=== PATIENT | male | born 1980 | race Caucasian/White ===

== ENCOUNTER 2018-11-24 16:03 | Emergency (ER) | payer OTHER ==
[2018-11-24] MEDS ORDERED: HYDROmorphONE/DILAUDID 2 MG/ML INJ IVP ONE (16:20)
[2018-11-24] MEDS ORDERED: NS 1,000 ML IV ONE (16:20)
[2018-11-24] MEDS ORDERED: KETOROLAC 30 MG/1 ML SDV IVP ONE (16:20)
[2018-11-24] MEDS ORDERED: ONDANSETRON 4 MG/2 ML VIAL IVP ONE (16:20)
--- NOTE | 2018-11-24 16:20 | EDPHY ---
H & P Stated Complaint: l flank l abd pain with hx kidney stones Time Seen by Provider: 11/24/18 16:19 - Personal History Current Tetanus Diphtheria and Acellular Pertussis (TDAP): Yes - Medical/Surgical History Hx Asthma: No Hx Chronic Respiratory Disease: No Hx Diabetes: No Hx Cardiac Disease: No Hx Renal Disease: No Hx Cirrhosis: No Hx Alcoholism: No Hx HIV/AIDS: No Hx Splenectomy or Spleen Trauma: No Other PMH: kidney stones - Social History Smoking Status: Never smoked Constitutional: Initial Vital Signs Temperature (C) 37.3 C 11/24/18 16:09 Heart Rate 104 H 11/24/18 16:09 Respiratory Rate 18 11/24/18 16:09 Blood Pressure 156/109 H 11/24/18 16:09 O2 Sat (%) 97 11/24/18 16:09 O2 Delivery Mode Room Air Allergies/Adverse Reactions: Sulfa (Sulfonamide Antibiotics) Allergy (Verified 11/24/18 16:08) Home Medications: Medication Instructions Recorded Abilify 11/24/18 Hydrocodone/APAP 5/325 [[place] 1 - 2 each PO Q4-6PRN PRN #20 tab 11/24/18 5/325] Ibuprofen [Motrin] 800 mg PO Q8 #20 tab 11/24/18 Sertraline HCl 11/24/18 Tamsulosin HCl [Flomax 0.4 MG (*)] 0.4 mg PO DAILY #10 cap 11/24/18 Medical Decision Making - Diagnostics Imaging Results: Imaging Impressions Abdomen/Pelvis Ultrasound 11/24/18 16:24 Impression: 5 mm calcification within the region of the distal left ureter suspicious for a distal left ureteral calculus. No associated hydronephrosis. Results called to Dr. Ramirez at 5:20 PM. Imaging: Discussed imaging studies w/ nurse leader Radiologist, I viewed and interpreted images myself ED Course/Re-evaluation: CHIEF COMPLAINT: Left flank pain HISTORY OF PRESENT ILLNESS: The patient is a 38 y/o male with a history of kidney stones complaining of waxing and waning left flank pain, onset 2 hours ago. The patient has passed a total of 12 kidney stones and was admitted for 2 of those. For these kidney stones, the patient has had 1 CT scan and 1 ultrasound. The pain today feels the same as prior kidney stones. Currently the pain is present for 30 minutes and then alleviates for 10 minutes. As his pain has not improved, he decided to present to the emergency department. No fever, headache, body aches, lightheadedness, chest pain, heart palpitations, shortness of breath, cough, abdominal pain, urinary or bowel complaints, numbness, paresthesias. REVIEW OF SYSTEMS: A comprehensive 10 system review of systems is otherwise negative aside from elements mentioned in the history of present illness and medical decision making. PHYSICAL EXAM: HR, BP, O2 Sat, RR. Temp noted General Appearance: Alert, well hydrated, appropriate, and non-toxic appearing. Head: Atraumatic without scalp tenderness or obvious injury Eyes: Pupils equal, round, reactive to light and accommodation, EOMI, no trauma , no injection. Ears: Clear bilaterally, no perforation, normal landmarks Nose: Atraumatic, no rhinorrhea, clear. Throat: There is no erythema or exudates, no lesions, normal tonsils, mucus membranes moist. Neck: Supple, 2+ carotid upstroke, nontender, no lymphadenopathy. Respiratory: No retractions, no distress, no wheezes, and no accessory muscle use. Lungs are clear to auscultation bilaterally. Cardiovascular: Regular rate and rhythm, no murmurs, rubs, or gallops. Bilateral carotid, radial, dorsalis pedis, and posterior tibial pulses intact. Good capillary refill all extremities. Gastrointestinal: Abdomen is soft, nontender, non-distended, no masses, no rebound, no guarding, no peritoneal signs. Back: Left CVA tenderness. Musculoskeletal: Normal active ROM of all extremities, atraumatic. Neurological: Alert, appropriate, and interactive. The patient has normal DTRs and non-focal cranial nerves, motor, sensory, and cerebellar exam. Skin: No rashes, good turgor, no nodules on palpation. Past medical history: Kidney stones Past surgical history: Denies Family history: Denies Social history: Lives in [place], single, employed DIAGNOSTICS/PROCEDURES/CRITICAL CARE TIME: Left flank US: Left stone measuring at 4.5mm x 5.5 mm at the UVJ. Minimal hydronephrosis and a good ureter. DIFFERENTIAL DIAGNOSIS: The differential diagnosis for the patient's flank pain included but was not limited to musculoskeletal causes, kidney stone, pyelonephritis, shingles, diverticulitis, appendicitis, and aortic aneurysm. MEDICAL DECISION MAKING: The patient is a 38 y/o male with a history of 10 kidney stones presenting with waxing and waning left flank pain, onset 2 hours ago. For these kidney stones, the patient has had 1 CT scan and 1 ultrasound. On exam he has a left CVA tenderness. As the patient has had CT scans in the past, I will order an US which the patient is comfortable with. Labs and retroperitoneal US ordered; 1L IV NS, 30mg IV Toradol, 1mg IV Dilaudid, 4mg IV Zofran, and 0.4mg PO Flomax administered. 1720: I spoke with the Dr. Nunez, radiologist, who reports that the patient has a left stone measuring at 4.5mm x 5.5 mm at the UVJ. Minimal hydronephrosis and a good ureter. UA still pending. 1720: Reassessed patient and discussed imaging findings. Patient should be able to pass the stone on his own. I have prescribed the patient Flomax, Motrin, and [place] for the kidney stone. Patient cannot be discharged until UA has resulted. 1732: Patient's UA reveals blood but no signs of infection. He is safe to be discharged home. I have advised him to follow up with a urologist and strain his urine. Return precautions provided; patient is comfortable with this plan. - Data Points Laboratory Results: Laboratory Results 11/24/18 16:30 11/24/18 16:30 11/24/18 11/24/18 11/24/18 17:15 16:30 16:30 WBC 6.68 10^3/uL 10^3/uL (3.80-9.50) RBC 5.09 10^6/uL 10^6/uL (4.40-6.38) Hgb 16.2 g/dL g/dL (13.7-17.5) Hct 47.6 % % (40.0-51.0) MCV 93.5 fL fL (81.5-99.8) MCH 31.8 pg pg (27.9-34.1) MCHC 34.0 g/dL g/dL (32.4-36.7) RDW 12.1 % % (11.5-15.2) Plt Count 274 10^3/uL 10^3/uL (150-400) MPV 9.4 fL fL (8.7-11.7) Neut % (Auto) 49.3 % % (39.3-74.2) Lymph % (Auto) 41.3 % % (15.0-45.0) [place] % (Auto) 6.6 % % (4.5-13.0) Eos % (Auto) 1.5 % % (0.6-7.6) Baso % (Auto) 0.9 % % (0.3-1.7) Nucleat RBC Rel Count 0.0 % % (0.0-0.2) Absolute Neuts (auto) 3.29 10^3/uL 10^3/uL (1.70-6.50) Absolute Lymphs (auto) 2.76 10^3/uL 10^3/uL (1.00-3.00) Absolute Monos (auto) 0.44 10^3/uL 10^3/uL (0.30-0.80) Absolute Eos (auto) 0.10 10^3/uL 10^3/uL (0.03-0.40) Absolute Basos (auto) 0.06 10^3/uL 10^3/uL (0.02-0.10) Absolute Nucleated RBC 0.00 10^3/uL 10^3/uL (0-0.01) Immature Gran % 0.4 % % (0.0-1.1) Immature Gran # 0.03 10^3/uL 10^3/uL (0.00-0.10) Sodium 141 mEq/L mEq/L (135-145) Potassium 3.8 mEq/L mEq/L (3.5-5.2) Chloride 103 mEq/L mEq/L (97-110) Carbon Dioxide 23 mEq/l mEq/l (22-31) Anion Gap 15 mEq/L H mEq/L (6-14) BUN 14 mg/dL mg/dL (7-23) Creatinine 0.8 mg/dL mg/dL (0.7-1.3) Estimated GFR > 60 Glucose 94 mg/dL mg/dL (70-100) Calcium 9.1 mg/dL mg/dL (8.5-10.4) Urine Color YELLOW Urine Appearance HAZY Urine pH 6.0 (5.0-7.5) Ur Specific Ho[place] 1.015 (1.002-1.030) Urine Protein 1+ H (NEGATIVE) Urine Ketones NEGATIVE (NEGATIVE) Urine Blood 3+ H (NEGATIVE) Urine Nitrate NEGATIVE (NEGATIVE) Urine Bilirubin NEGATIVE (NEGATIVE) Urine Urobilinogen NEGATIVE EU EU (0.2-1.0) Ur Leukocyte Esterase NEGATIVE (NEGATIVE) Urine RBC Pending Urine WBC Pending Ur Epithelial Cells Pending Urine Glucose NEGATIVE (NEGATIVE) Medications Given: Discontinued Medications Hydromorphone HCl (Dilaudid) 1 mg IVP EDNOW ONE Stop: 11/24/18 16:21 Last Admin: 11/24/18 16:35 Dose: 1 mg Sodium Chloride (Ns) 1,000 mls @ 0 mls/hr IV EDNOW ONE; Wide Open PRN Reason: Protocol Stop: 11/24/18 16:21 Last Admin: 11/24/18 16:36 Dose: 1,000 mls Ketorolac Tromethamine (Toradol) 30 mg IVP EDNOW ONE Stop: 11/24/18 16:21 Last Admin: 11/24/18 16:35 Dose: 30 mg Ondansetron HCl (Zofran) 4 mg IVP EDNOW ONE Stop: 11/24/18 16:21 Last Admin: 11/24/18 16:35 Dose: 4 mg Tamsulosin HCl (Flomax) 0.4 mg PO EDNOW ONE Stop: 11/24/18 16:25 Last Admin: 11/24/18 16:35 Dose: 0.4 mg Departure - Departure Disposition: Home, Routine, Self-Care Clinical Impression: Kidney stone on left side Condition: Good Instructions: Kidney Stones (ED), How to Strain Your Urine (ED) Additional Instructions: 1. Take Flomax, Motrin, and [place] as prescribed. 2. Followup with your urologist within one week. 3. Return to the emergency apartment for fever, severe pain, inability to urinate or other concerns. 4. Strain urine to try and catch the kidney stone and bring this to the urology appointment. Referrals: Yadira Lobato MD [Primary Care Provider] - As per Instructions Marilyn Martinez MD [Medical Doctor] - As per Instructions Prescriptions: Hydrocodone/APAP 5/325 [[place] 5/325] 1 - 2 each PO Q4-6PRN PRN #20 tab PRN Reason: Pain, Moderate Ibuprofen [Motrin] 800 mg PO Q8 #20 tab Tamsulosin HCl [Flomax 0.4 MG (*)] 0.4 mg PO DAILY #10 cap Report Scribed for: Rufus Ramirez Report Scribed by: Margarita Horvath Date of Report: 11/24/18 Time of Report: 16:35
[2018-11-24] MEDS ORDERED: TAMSULOSIN HCL 0.4 MG CAP PO ONE (16:24)
[2018-11-24 16:36] LABS: PLATELET COUNT 274 10^3/uL (150-400)
[2018-11-24 17:46] VITALS: BP 148/93
[2018-11-24] MEDS ORDERED: HYDROCOD/APAP 5/325 PREPACK#6 BTL TAKEHOME ONE (17:56)
== END 2018-11-24 17:45 | disposition home or self-care (01) ==
DX: N20.1 Calculus of ureter (principal)
CPT/HCPCS: 96374; J1170; J1885; J2405

== ENCOUNTER 2018-11-26 13:24 | Day surgery (SDC) | payer OTHER ==
[2018-11-26] MEDS ORDERED: LR 1,000 ML IV ONE (14:48)
--- NOTE | 2018-11-26 20:42 | PDHPUP ---
History & Physical Update H&P update statement: This history and physical update is based on an assessment of the patient which was completed after admission or registration (within 24 hours), but prior to the surgery/procedure. H&P update: H&P reviewed & patient examined, no change in patient's condition since H&P completed (left distal stone, urine WBC 15-25, needs stent. )
[2018-11-26] MEDS ORDERED: LIDOCAINE 2% JELLY 20 ML (UROJECT) ONE (20:44)
[2018-11-26] MEDS ORDERED: OPIUM/BELLADONNA ALKALO SUPP PR ONE (20:45)
[2018-11-26] MEDS ORDERED: IOPAMIDOL (ISOVUE-M 300) 15 ML VIAL ONE (20:45)
[2018-11-26] MEDS ORDERED: MIDAZOLAM 2 MG/2 ML VIAL IVP ONE (20:50)
--- NOTE | 2018-11-26 20:50 | PDANEPAE ---
ANE History of Present Illness ureterolithiasis here for stent ANE Past Medical History - Cardiovascular History Hx Hypertension: No Hx Arrhythmias: No Hx Chest Pain: No Hx Coronary Artery / Peripheral Vascular Disease: No Hx CHF / Valvular Disease: No Hx Palpitations: No - Pulmonary History Hx COPD: No Hx Asthma/Reactive Airway Disease: No Hx Recent Upper Respiratory Infection: No Hx Oxygen in Use at Home: No Hx Sleep Apnea: No Sleep Apnea Screening Result - Last Documented: Negative - Neurologic History Hx Cerebrovascular Accident: No Hx Seizures: No Hx Dementia: No - Endocrine History Hx Diabetes: No - Renal History Hx Renal Disorders: Yes Renal History Comment: KIDNEY STONES - Liver History Hx Hepatic Disorders: No - Neurological & Psychiatric Hx Hx Neurological and Psychiatric Disorders: Yes Neurological / Psychiatric History Comment: DEPRESSION/ANXIETY - Cancer History Hx Cancer: No - Congenital Disorder History Hx Congenital Disorders: No - GI History Hx Gastrointestinal Disorders: No - Other Health History Other Health History: NONE - Chronic Pain History Chronic Pain: No - Surgical History Prior Surgeries: KIDNEY STONE REMOVAL 2008 ANE Review of Systems Review of Systems: - Exercise capacity METS (RN): 4 METS ANE Patient History - Allergies Allergies/Adverse Reactions: Sulfa (Sulfonamide Antibiotics) Allergy (Verified 11/24/18 16:08) - Home Medications Home Medications: Abilify 5 mg PO DAILY 11/24/18 [Last Taken 11/26/18 06:30] Sertraline HCl 100 mg PO DAILY 11/24/18 [Last Taken 11/26/18 06:30] - NPO status NPO Status: no food or drink >8 hours NPO Since - Liquids (Date): 11/26/18 NPO Since - Liquids (Time): 13:00 NPO Since - Solids (Date): 11/26/18 NPO Since - Solids (Time): 07:00 - Anes Hx Anes Hx: no prior problems - Smoking Hx Smoking Status: Never smoked - Alcohol Use Alcohol Use: Heavy - Family Anes Hx Family Anes Hx: none Family Hx Anesthesia Complications: NONE ANE Labs/Vital Signs - Vital Signs Blood Pressure: 138/104 Heart Rate: 91 Respiratory Rate: 21 O2 Sat (%): 94 Height: 167.64 cm Weight: 70.307 kg ANE Physical Exam - Airway Neck exam: FROM Mallampati Score: Class 2 Mouth exam: normal dental/mouth exam - Pulmonary Pulmonary: no respiratory distress, clear to auscultation - Cardiovascular Cardiovascular: regular rate and rhythym, no murmur, rub, or gallop - ASA Status ASA Status: II ANE Anesthesia Plan Anesthesia Plan: GA w LMA
[2018-11-26] MEDS ORDERED: fentaNYL 100 MCG/2 ML INJ ONE ×3 (20:56→23:37)
[2018-11-26] MEDS ORDERED: PROPOFOL 200 MG/20 ML VIAL ONE ×2 (20:56→21:18)
[2018-11-26] MEDS ORDERED: LIDOCAINE 2% 100 MG/5 ML SYR ONE (20:57)
[2018-11-26] MEDS ORDERED: ceFAZolin 1 GM VIAL ONE ×2 (21:18)
[2018-11-26] MEDS ORDERED: HYDROCODONE/APAP 5/325 TAB PO PRN (21:42)
[2018-11-26] MEDS ORDERED: PROMETHAZINE HCL 25 MG/ML INJ IVP PRN (21:42)
[2018-11-26] MEDS ORDERED: ACETAMINOPHEN 500 MG TAB PO PRN (21:42)
[2018-11-26] MEDS ORDERED: oxyCODONE IR 5 MG TAB PO PRN (21:42)
[2018-11-26] MEDS ORDERED: ONDANSETRON 4 MG/2 ML VIAL IVP PRN (21:42)
[2018-11-26] MEDS ORDERED: NALOXONE HCL 0.4 MG/ML INJ IVP PRN (21:42)
--- NOTE | 2018-11-26 21:43 | POSTOPPROG ---
Post Op Note Date of Operation: 11/26/18 Surgeon: Marilyn Martinez Anesthesiologist: Deb Anesthesia: LMA Pre-op Diagnosis: left ureteral stone, UTI Post-op Diagnosis: same Indication: left ureteral stone, UTI Procedure: cysto, L stent, fluro Findings: cloudy urine, edematous appearing left UO Inf/Abcess present in the surg proc area at time of surgery?: Yes Depth: Organ Space (urologic) EBL: Minimal Complications: none pt tolerated procedure well Specimen(s): urine for cx
--- NOTE | 2018-11-26 21:44 | POSTANESTH ---
Post Anesthetic Evaluation Cardiovascular Status: Normal, Stable, Similar to Pre-Op Cond Respiratory Status: Normal, Stable, Similar to Pre-op Cond. Level of Consciousness/Mental Status: Can Participate in Eval, Alert and Oriented Pain Control: Adequate, Prn Tx Ordered Nausea/Vomiting Control: Adequate, Prn Tx Ordered Complications Possibly Related to Anesthesia: None Noted
[2018-11-26] MEDS: fentaNYL 100 MCG/2 ML INJ IVP PRN ×3 (22:21→23:38)
[2018-11-26] MEDS ORDERED: ACETAMINOPHEN 500 MG TAB ONE (23:42)
[2018-11-27 10:15] VITALS: BP 168/103
--- NOTE | 2018-11-27 22:58 | GOP ---
[f rep st] OPERATIVE REPORT DATE OF OPERATION: 11/26/2018 SURGEON: Marilyn Martinez MD ANESTHESIA: LMA. ANESTHESIOLOGIST: Dr. Boyd. PREOPERATIVE DIAGNOSIS: Left ureteral stone, urinary tract infection. POSTOPERATIVE DIAGNOSIS: Left ureteral stone, urinary tract infection. PROCEDURE PERFORMED: Cystoscopy, left stent placement, intraoperative fluoroscopy. FINDINGS: Cloudy urine, edematous appearing left ureteral orifice. SPECIMENS: Urine for culture. ESTIMATED BLOOD LOSS: Minimal. INDICATIONS: Left ureteral stone, UTI, and symptoms. DESCRIPTION OF PROCEDURE: The patient was taken back to the cystoscopy suite, placed on the cystoscopy table in supine position and general anesthesia induced without complication. Time-out performed. Core measures satisfied, including placement of Jer Hugger and SCDs and administration of Ancef antibiotics. He was brought to the end of the table, placed in dorsal lithotomy position. All pressure points padded. Genitalia draped and prepped in the standard sterile fashion with Betadine. Rigid cystoscope easily cannulated the urethral meatus and was advanced atraumatically into the bladder. Zabala cystoscopy was performed. The left ureteral orifice was edematous , but there were no stones and no other abnormalities in the bladder. The left ureteral orifice was identified. A 0.035 Glidewire was advanced in the left collecting system and then a 6-Uzbek multivariable stent was placed over the wire with fluoroscopic guidance. There was a nice curl in the renal pelvis and a nice curl in the bladder. The bladder was then emptied. Scope was removed. Procedure considered complete. He was awoken from anesthesia and transferred to PACU in good condition. COMPLICATIONS: None. The patient tolerated the procedure well. INDICATIONS: The patient was referred to my office by Dr. Yadira Lobato for evaluation of a left distal ureteral stone. I saw him in my office the same day, and he looked diaphoretic and had significant left flank tenderness. He had only had an ultrasound to date, and I felt the left stent was appropriate. He did have 15-25 white blood cells in his urine in the ER a day ago. I felt a CT scan as well as left stent placement was indicated, and he agreed. Of note, he has a history of alcoholism. /[id number]/MODL MTDD
== END 2018-11-27 00:15 | disposition home or self-care (01) ==
LOC: FSGY 13:24
PROVIDERS: ATTEND Urology
PROC: BT141ZZ Fluoroscopy of Kidneys, Ureters and Bladder using Low Osmolar Contrast (ICD-10-PCS; principal; 2018-11-26 17:00)
PROC: 0T9780Z Drainage of Left Ureter with Drainage Device, Via Natural or Artificial Opening Endoscopic (ICD-10-PCS; principal; 2018-11-26 17:00)
DX: N13.2 Hydronephrosis with renal and ureteral calculous obstruction (principal); N39.0 Urinary tract infection, site not specified; Z87.442 Personal history of urinary calculi; I10 Essential (primary) hypertension; E78.5 Hyperlipidemia, unspecified; F32.9 Major depressive disorder, single episode, unspecified; F41.9 Anxiety disorder, unspecified
CPT/HCPCS: 52005; 74176; 76000; C1758; C1769; C2625; J0690; J2001; J2250; J2704; J3010; Q9967

== ENCOUNTER 2018-12-05 11:54 | Day surgery (SDC) | payer OTHER ==
[2018-12-05] MEDS ORDERED: LR 1,000 ML IV ONE (12:06)
[2018-12-05] MEDS ORDERED: LIDOCAINE 2% JELLY 20 ML (UROJECT) ONE (12:18)
[2018-12-05] MEDS ORDERED: IOPAMIDOL (ISOVUE-M 300) 15 ML VIAL ONE (12:18)
[2018-12-05] MEDS ORDERED: OPIUM/BELLADONNA ALKALO SUPP PR ONE (12:18)
[2018-12-05] MEDS ORDERED: MIDAZOLAM 2 MG/2 ML VIAL IVP ONE (12:25)
--- NOTE | 2018-12-05 12:25 | PDANEPAE ---
ANE Past Medical History - Cardiovascular History Hx Hypertension: No Hx Arrhythmias: No Hx Chest Pain: No Hx Coronary Artery / Peripheral Vascular Disease: No Hx CHF / Valvular Disease: No Hx Palpitations: No - Pulmonary History Hx COPD: No Hx Asthma/Reactive Airway Disease: No Hx Recent Upper Respiratory Infection: No Hx Oxygen in Use at Home: No Hx Sleep Apnea: No - Neurologic History Hx Cerebrovascular Accident: No Hx Seizures: No Hx Dementia: No - Endocrine History Hx Diabetes: No Hypothyroid: No Hyperthyroid: No Obesity: no - Renal History Hx Renal Disorders: Yes Renal History Comment: KIDNEY STONES - Liver History Hx Hepatic Disorders: No - Neurological & Psychiatric Hx Hx Neurological and Psychiatric Disorders: Yes Neurological / Psychiatric History Comment: DEPRESSION/ANXIETY - Cancer History Hx Cancer: No - Congenital Disorder History Hx Congenital Disorders: No - GI History Hx Gastrointestinal Disorders: No - Other Health History Other Health History: NONE - Chronic Pain History Chronic Pain: No - Surgical History Prior Surgeries: KIDNEY STONE REMOVAL 2008. stent placement in kidney 11/27/18 ANE Review of Systems Review of Systems: - Exercise capacity METS (RN): 6 METS ANE Patient History - Allergies Allergies/Adverse Reactions: Sulfa (Sulfonamide Antibiotics) Allergy (Verified 11/24/18 16:08) - Home Medications Home Medications: Abilify 5 mg PO DAILY 11/24/18 [Last Taken 12/05/18 07:00] Sertraline HCl 100 mg PO DAILY 11/24/18 [Last Taken 12/05/18 07:00] - NPO status NPO Since - Liquids (Date): 12/04/18 NPO Since - Liquids (Time): 20:00 NPO Since - Solids (Date): 12/04/18 NPO Since - Solids (Time): 20:00 - Smoking Hx Smoking Status: Never smoked - Family Anes Hx Family Hx Anesthesia Complications: NONE ANE Labs/Vital Signs - Vital Signs Blood Pressure: 148/101 Heart Rate: 80 Respiratory Rate: 18 O2 Sat (%): 96 Height: 167.64 cm Weight: 70.307 kg ANE Physical Exam - Airway Neck exam: FROM Mallampati Score: Class 1 Mouth exam: normal dental/mouth exam - Pulmonary Pulmonary: no respiratory distress - Cardiovascular Cardiovascular: regular rate and rhythym - ASA Status ASA Status: II ANE Anesthesia Plan Anesthesia Plan: GA w LMA
[2018-12-05] MEDS ORDERED: ceFAZolin 2 GM/DEXTROSE 100 ML IV ONE (13:40)
--- NOTE | 2018-12-05 13:40 | PDHPUP ---
History & Physical Update H&P update statement: This history and physical update is based on an assessment of the patient which was completed after admission or registration (within 24 hours), but prior to the surgery/procedure. H&P update: H&P reviewed & patient examined (Stent placed last week, here for definitive treatment of left ureteral stone. )
[2018-12-05] MEDS ORDERED: DEXAMETHASONE 4 MG/ML VIAL ONE (13:42)
[2018-12-05] MEDS ORDERED: ceFAZolin 1 GM VIAL ONE (13:42)
[2018-12-05] MEDS ORDERED: ONDANSETRON 4 MG/2 ML VIAL ONE (13:42)
[2018-12-05] MEDS ORDERED: LIDOCAINE 2% 2 ML INJ ONE (13:42)
[2018-12-05] MEDS ORDERED: fentaNYL 250 MCG/5 ML INJ ONE (13:43)
[2018-12-05] MEDS ORDERED: PROPOFOL/EMULSION 500 MG/50 ML BOTTLE IV ONE (13:43)
[2018-12-05] MEDS ORDERED: PROMETHAZINE HCL 25 MG/ML INJ IVP PRN (14:43)
[2018-12-05] MEDS ORDERED: LR 500 ML IV PRN (14:43)
[2018-12-05] MEDS ORDERED: NALOXONE HCL 0.4 MG/ML INJ IVP PRN (14:43)
--- NOTE | 2018-12-05 14:43 | POSTOPPROG ---
Post Op Note Date of Operation: 12/05/18 Surgeon: Marilyn Martinez Anesthesiologist: Marysol Anesthesia: LMA Pre-op Diagnosis: left ureteral stone Post-op Diagnosis: same Indication: left ureteral stone Procedure: cysto,LURS,laser,stent,basket ext stone Findings: left distal ureteral stone Inf/Abcess present in the surg proc area at time of surgery?: No EBL: Minimal Complications: none, pt tolerated procedure well Specimen(s): stone
--- NOTE | 2018-12-05 14:43 | POSTANESTH ---
Post Anesthetic Evaluation Cardiovascular Status: Normal, Stable Respiratory Status: Normal, Stable Level of Consciousness/Mental Status: Can Participate in Eval Pain Control: Adequate, Prn Tx Ordered Nausea/Vomiting Control: Adequate, Prn Tx Ordered Complications Possibly Related to Anesthesia: None Noted
[2018-12-05] MEDS ORDERED: fentaNYL 100 MCG/2 ML INJ ONE ×3 (14:50→15:33)
[2018-12-05] MEDS: fentaNYL 100 MCG/2 ML INJ IVP PRN ×5 (14:52→15:50)
[2018-12-05] MEDS ORDERED: HYDROmorphONE/DILAUDID 1 MG/ML INJ ONE (15:57)
[2018-12-05] MEDS ORDERED: HYDROCODONE/APAP 5/325 TAB PO PRN (16:02)
[2018-12-05] MEDS: HYDROmorphONE/DILAUDID 1 MG/ML INJ IVP PRN ×3 (16:10→16:31)
[2018-12-05] MEDS ORDERED: HYDROCODONE/APAP 5/325 TAB ONE (16:30)
[2018-12-05 17:01] VITALS: BP 134/76
--- NOTE | 2018-12-06 04:53 | GOP ---
[f rep st] OPERATIVE REPORT DATE OF OPERATION: 12/05/2018 SURGEON: Marilyn Martinez MD ANESTHESIA: LMA. ANESTHESIOLOGIST: Dr. Gregg. PREOPERATIVE DIAGNOSIS: Left ureteral stone. POSTOPERATIVE DIAGNOSIS: Left ureteral stone. PROCEDURE PERFORMED: Cystoscopy, left ureteroscopy, laser lithotripsy, basket extraction of stone, a nd stent. FINDINGS: SPECIMENS: Stone. ESTIMATED BLOOD LOSS: Minimal. INDICATIONS: Left ureteral stone. He presented to my office a week ago with fevers and nausea. I f elt that he likely had a UTI based upon a microscopy of his urine 2 days prior, so I just placed a st ent at that time, and he returns today for treatment of his left ureteral stone. I discussed the rat ionale, risks and benefits including bleeding, infection, pain, injury to the left ureter, urethra or the bladder, need for subsequent procedures, inability to treat the stone, inability to place a sten t, possible need for left percutaneous nephrostomy tube. He understood these risks and agreed to pro ceed. DESCRIPTION OF PROCEDURE: The patient was taken back to the cystoscopy suite, placed on the cystosco py table in the supine position. General anesthesia induced without complication. Time-out performe d. Core measures satisfied, including placement of a Jer Hugger, SCDs, and administration of 2 g An cef antibiotics. He was brought to the end of the table, placed in a dorsal lithotomy position. All pressure points padded. Genitalia draped and prepped in the standard surgical fashion with Betadine . Rigid cystoscope easily cannulated. The urethral meatus was advanced atraumatically into the blad mattie. Zabala cystoscopy performed and there was no stone in the bladder. Cystoscopy was advanced atraum atically into the bladder. The left ureteral stent was visualized and grasped with a grasper. Dista l end externalized. A wire was placed through the stent with fluoroscopic guidance and a 2nd wire wa s placed with cystoscopic and fluoroscopic guidance in the left collecting system. The cystoscope wa s removed. A 12-Swedish red rubber catheter was placed to decompress the bladder. Rigid ureteroscope advanced easily into the urethra and into the bladder and the left ureter. The stone was encountere d. It was lasered with a 200 micron fiber into dust and basketable fragments. The basket was then a dvanced to the level of the stone and stone was removed and sent for pathology. The ureteroscope was advanced all the way up into the left ureteropelvic junction. No additional stones or dust were enc ountered up at that level. I do not feel any stones traveled past the left distal ureter. The scope was removed leaving the wire in place. Again, the ureter was examined and it was overall very healt hy except for the very distal part where the stone had been lodged. My safety wire was still up, and I advanced a 6-Swedish multivariable stent in the left collecting system with fluoroscopic and cystos copic guidance. There was a nice curl in the renal pelvis and a nice curl in the bladder. His bladd er was then emptied. At this point, the procedure considered complete. He was awoken from anesthesi a and transferred to PACU in good condition. COMPLICATIONS: None. The patient tolerated the procedure well. /[id number]/MODL
== END 2018-12-05 17:04 | disposition home or self-care (01) ==
LOC: FSGY 11:54
PROVIDERS: ATTEND Urology
DX: N20.1 Calculus of ureter (principal); Z87.442 Personal history of urinary calculi
CPT/HCPCS: 52356; 76000; C1758; C1769; 82365-90; C2625; J0690; J1100; J1170; J2250; J2270; J2405; J2704; J3010; Q9967